=== PATIENT | male | born 1960 | race Caucasian/White ===

== ENCOUNTER 2017-07-05 16:51 | Emergency (ER) | payer MEDICARE ==
[~2017-07-05] VITALS: Ht 190.5 cm; Wt 158.8 kg
[2017-07-05 17:04] VITALS: BP 151/98
[2017-07-05] MEDS ORDERED: PERM60CR12 TP (17:14)
[2017-07-05] MEDS ORDERED: CEPH-263 PO (17:14)
--- NOTE | 2017-07-05 17:14 | PHYS DOC ---
Past Medical History Past Medical History: Other Additional Past Medical Histor: CHRONIC SHOULDER AND LEFT KNEE PAIN Past Surgical History: Knee Replacement, Other Additional Past Surgical Histo: BILATER SHOULDER SURGERY Alcohol Use: None Drug Use: None Adult General Chief Complaint Chief Complaint: ITCHING HPI HPI Patient is a 57 year old male presents the ED complaining of itching and rash to full body x 2 days. Patient states the rash started on his arms and started moving towards his trunk. States a few days ago he helped wash his neighbors dog who had a lot of fleas and bugs on him. Rates the itching as 8 out of 10. States he has scratched some of them open cause he itches really bad. Denies fever, discharge, headache, nausea/vomiting or abdominal pain. Review of Systems Review of Systems Constitutional: Denies fever or chills [] Eyes: Denies change in visual acuity, redness, or eye pain [] HENT: Denies nasal congestion or sore throat [] Respiratory: Denies cough or shortness of breath [] Cardiovascular: No additional information not addressed in HPI [] GI: Denies abdominal pain, nausea, vomiting, bloody stools or diarrhea [] : Denies dysuria or hematuria [] Musculoskeletal: Denies back pain or joint pain [] Integument: Complains of rash. Denies skin lesions. [] Neurologic: Denies headache, focal weakness or sensory changes [] Endocrine: Denies polyuria or polydipsia [] Allergies Allergies Allergies Coded Allergies Type Severity Reaction Last Updated Verified No Known Drug Allergies 07/04/14 No Physical Exam Physical Exam Constitutional: Well developed, well nourished, no acute distress, non-toxic appearance. [] HENT: Normocephalic, atraumatic, bilateral external ears normal, oropharynx moist, no oral exudates, nose normal. [] Eyes: PERRLA, EOMI, conjunctiva normal, no discharge. [] Neck: Normal range of motion, no tenderness, supple, no stridor. [] Cardiovascular:Heart rate regular rhythm, no murmur [] Lungs & Thorax: Bilateral breath sounds clear to auscultation [] Abdomen: Bowel sounds normal, soft, no tenderness, no masses, no pulsatile masses. [] Skin: Warm, dry, MILD TRACKING ERYTHEMATOUS BURROWING RASH WITH EXCORIATIONS TO BILATERAL ARMS AND TRUNK/BACK. [] Back: No tenderness, no CVA tenderness. [] Extremities: No tenderness, no cyanosis, no clubbing, ROM intact, no edema. [] Neurologic: Alert and oriented X 3, normal motor function, normal sensory function, no focal deficits noted. [] Psychologic: Affect normal, judgement normal, mood normal. [] Current Patient Data Vital Signs Vital Signs Date Time Temp Pulse Resp B/P (MAP) Pulse Ox O2 Delivery O2 Flow Rate FiO2 07/05/17 17:04 98.2 71 20 96 Room Air 98.2 EKG EKG [] Radiology/Procedures Radiology/Procedures [] Course & Med Decision Making Course & Med Decision Making Pertinent Labs and Imaging studies reviewed. (See chart for details) []Will treat with permethrin cream, [id number] Benadryl and Keflex for prophylaxis due to possible secondary infection from scratching. Discussed abstaining from scratching and outpatient symptomatic treatment measures that will help. Discussed follow-up with PCP early next week. Discussed reasons to return to the ED. Patient understands and agrees with plan. Dragon Disclaimer Dragon Disclaimer This electronic medical record was generated, in whole or in part, using a voice recognition dictation system. Departure Departure Impression: Primary Impression: Insect bite Disposition: 01 HOME, SELF-CARE Condition: STABLE Referrals: DEMAR CHOW MD (PCP) Patient Instructions: Insect Bite, Scabies Scripts Cephalexin (KEFLEX) 250 Mg Capsule 1 CAP PO TID, #30 CAP Prov: LEONEL ARVIZU 07/05/17 Permethrin (PERMETHRIN) 60 Gm Cream..g. 1 [place] TP ONCE, #60 GM 1 Refill apply from neck down tonight before bed. Wake up and shower off in the morning. Prov: LEONEL ARVIZU 07/05/17 LEONEL ARVIZU Jul 05, 2017 17:14
== END 2017-07-05 17:32 | disposition home or self-care (01) ==
LOC: ER 16:51
DX: S40.861A Insect bite (nonvenomous) of right upper arm, initial encounter (principal); S40.862A Insect bite (nonvenomous) of left upper arm, initial encounter; G89.29 Other chronic pain; Z98.890 Other specified postprocedural states; W57.XXXA Bitten or stung by nonvenomous insect and other nonvenomous arthropods, initial encounter; Y92.89 Other specified places as the place of occurrence of the external cause; Y93.89 Activity, other specified; Y99.8 Other external cause status
CPT/HCPCS: 99283

== ENCOUNTER 2018-01-18 20:41 | Emergency (ER) | payer MEDICARE ==
[2018-01-18] MEDS: silver sulfADIAZINE 1% CREAM 25GM TUBE. TP (21:58)
== END 2018-01-18 22:00 | disposition home or self-care (01) ==
LOC: ER 20:41
DX: T24.201A Burn of second degree of unspecified site of right lower limb, except ankle and foot, initial encounter (principal); G89.29 Other chronic pain; X16.XXXA Contact with hot heating appliances, radiators and pipes, initial encounter; Y93.89 Activity, other specified; Y99.8 Other external cause status; Y92.89 Other specified places as the place of occurrence of the external cause
CPT/HCPCS: 16020; 99284-25

== ENCOUNTER 2020-01-05 00:52 | Emergency (ER) | payer MEDICARE ==
[~2020-01-05] VITALS: Ht 190.5 cm; Wt 161.3 kg
[~2020-01-05 00:52] MED LIST: CEPH-263 PO; PERM60CR12 TP; SILV20CR14 TP; SULF1TAB24 PO
[2020-01-05 01:06] VITALS: BP 133/82
[2020-01-05] MEDS ORDERED: cefTRIAXone IV Push 1 GM VIAL. IVP ONE (01:30)
[2020-01-05] MEDS ORDERED: SULF1TAB24 PO (01:35)
--- NOTE | 2020-01-05 01:35 | PHYS DOC ---
Past Medical History Past Medical History: Other Additional Past Medical Histor: CHRONIC SHOULDER AND LEFT KNEE PAIN Past Surgical History: Knee Replacement, Other Additional Past Surgical Histo: BILATER SHOULDER SURGERY Smoking Status: Never Smoker Alcohol Use: None Drug Use: None General Adult EDM: Chief Complaint: HAND PROBLEM HPI: HPI: Patient is a 59 year old male who presents with report of injury to his right hand 2 days ago. Patient states that he punctured his hand between his second and third digits with sharp edge of the fencing. He states that his last tetanus shot was around a year ago. Patient states that today he noticed that there was increase in swelling and started to see some purulent drainage from the wound. He denies any other injuries. He denies any fever. He rates pain as moderate but is still able to fully flex and extend his fingers.[] Review of Systems: Review of Systems: Constitutional: Denies fever or chills. [] Respiratory: Denies cough or shortness of breath. [] Cardiovascular: Denies chest pain or edema. [] Musculoskeletal: Complains of right hand pain. [] Heart Score: Risk Factors: Risk Factors: DM, Current or recent (<one month) smoker, HTN, HLP, family history of CAD, obesity. Risk Scores: Score 0 - 3: 2.5% MACE over next 6 weeks - Discharge Home Score 4 - 6: 20.3% MACE over next 6 weeks - Admit for Clinical Observation Score 7 - 10: 72.7% MACE over next 6 weeks - Early Invasive Strategies Allergies: Allergies: Allergies Coded Allergies Type Severity Reaction Last Updated Verified No Known Drug Allergies 01/05/20 No Physical Exam: PE: Constitutional: Well developed, well nourished, no acute distress, non-toxic appearance. [] HENT: Normocephalic, atraumatic, bilateral external ears normal, oropharynx moist, no oral exudates, nose normal. [] Eyes: PERRLA, EOMI, conjunctiva normal, no discharge. [] Neck: Normal range of motion, no tenderness, supple, no stridor. [] Cardiovascular:Heart rate regular rhythm, no murmur [] Lungs & Thorax: Bilateral breath sounds clear to auscultation [] Abdomen: Bowel sounds normal, soft, no tenderness, no masses, no pulsatile masses. [] Skin: Warm, dry, no erythema, no rash. [] Back: No tenderness, no CVA tenderness. [] Extremities: No tenderness, no cyanosis, no clubbing, ROM intact, no edema. [] Neurologic: Alert and oriented X 3, normal motor function, normal sensory function, no focal deficits noted. [] Psychologic: Affect normal, judgement normal, mood normal. [] Current Patient Data: Vital Signs: Vital Signs Date Time Temp Pulse Resp B/P (MAP) Pulse Ox O2 Delivery O2 Flow Rate FiO2 01/05/20 01:06 98.3 92 20 133/82 (99) 95 Room Air 98.3 EKG: EKG: [] Radiology/Procedures: Radiology/Procedures: [] Course & Med Decision Making: Course & Med Decision Making Pertinent Labs and Imaging studies reviewed. (See chart for details) [] Dragon Disclaimer: Dragon Disclaimer: This electronic medical record was generated, in whole or in part, using a voice recognition dictation system. Departure Departure Impression: Primary Impression: Puncture wound of hand Qualified Codes: S61.431A - Puncture wound without foreign body of right hand, initial encounter Additional Impression: Abscess of hand Disposition: HOME, SELF-CARE Condition: STABLE Referrals: JOVANNY SALGADO MD (PCP) Patient Instructions: Abscess, Puncture Wound Scripts Sulfamethoxazole/Trimethoprim (BACTRIM DS TABLET) 1 Each Tablet 1 TAB PO BID for 10 Days, #20 TAB 0 Refills Prov: JAS LANGE Jr. DO 01/05/20 JAS LANGE Jr. DO Jan 05, 2020 01:35
[2020-01-05] MEDS ORDERED: ceFAZolin IM 1 GM VIAL IM ONE (02:00)
== END 2020-01-05 01:46 | disposition home or self-care (01) ==
LOC: ER 00:52
DX: S61.431A Puncture wound without foreign body of right hand, initial encounter (principal); Y28.8XXA Contact with other sharp object, undetermined intent, initial encounter; Y93.89 Activity, other specified; Y92.89 Other specified places as the place of occurrence of the external cause; Y99.8 Other external cause status
CPT/HCPCS: 96372; 99283; J0690

== ENCOUNTER 2021-08-13 16:26 | Emergency (ER) | payer MEDICARE ==
[~2021-08-13] VITALS: Ht 188 cm; Wt 159.0 kg
--- NOTE | 2021-08-13 16:46 | PHYS DOC ---
Past Medical History Past Medical History: Other Additional Past Medical Histor: CHRONIC SHOULDER AND LEFT KNEE PAIN Past Surgical History: Knee Replacement, Other Additional Past Surgical Histo: BILATER SHOULDER SURGERY Smoking Status: Never Smoker Alcohol Use: None Drug Use: None General Adult EDM: Chief Complaint: LACERATION/AVULSION HPI: HPI: Patient is a 61 year old male who presents with a fall with head strike. Was working on a snowblower when he tripped and struck his forehead on snowblower. Sustained a laceration over his left eyebrow. Denies LOC. No amnesia, confusion, headache, or nausea/vomiting. Denies neck pain, paresthesias, or upper extremity weakness. Did scrape his right knee but denies any other areas of discomfort. Is not on any blood thinning medications or antiplatelet medications. States his only 2 medications are methadone and Klonopin. Last tetanus was in the past few months. Review of Systems: Review of Systems: Constitutional: Denies fever or chills. [] Eyes: Denies change in visual acuity. [] HENT: Denies nasal congestion or sore throat. [] Respiratory: Denies cough or shortness of breath. [] Cardiovascular: Denies chest pain or edema. [] GI: Denies abdominal pain, nausea, vomiting, bloody stools or diarrhea. [] : Denies dysuria. [] Musculoskeletal: Denies back pain or joint pain. [] Integument: Reports a laceration to his left brow, abrasion to his right knee Neurologic: Denies headache, focal weakness or sensory changes. [] Endocrine: Denies polyuria or polydipsia. [] Lymphatic: Denies swollen glands. [] Psychiatric: Denies depression or anxiety. [] Heart Score: C/O Chest Pain: No Allergies: Allergies: Allergies Coded Allergies Type Severity Reaction Last Updated Verified No Known Drug Allergies 01/18/20 No Physical Exam: PE: Constitutional: Well developed, well nourished HENT: Left brow with a superficial laceration that is well approximated measuring approximately 1.5 cm. No evidence of foreign body. TMs normal. No evidence of gary sign. Eyes: PERRLA, EOMI, conjunctiva normal, no discharge. [] Neck: No midline cervical spine tenderness to palpation. No pain with 45 degree rotation in either direction, flexion to the left/right, or flexion/extension of the neck. Cardiovascular:Heart rate regular rhythm, no murmur [] Lungs & Thorax: Bilateral breath sounds clear to auscultation no chest wall tenderness to palpation. [] Abdomen: Bowel sounds normal, soft, no tenderness, no masses, no pulsatile masses. [] Skin: Warm, dry, no erythema, no rash. [] Back: No tenderness, no CVA tenderness. [] Extremities: No tenderness, no cyanosis, no clubbing, ROM intact, no edema. [] Neurologic: GCS 15 Alert, oriented. Speech normal. Face symmetric. EOMI, pupils equal, round, reactive, Good upper extremity and lower extremity strength. No sensation deficits or changes. Psychologic: Affect normal, judgement normal, mood normal. [] EKG: EKG: [] Radiology/Procedures: Radiology/Procedures: Indication: Left brow laceration Procedure: The patient was placed in the appropriate position and anesthesia around the left brow laceration was infiltrated with 1% lidocaine with epinephrine. The area was then irrigated with sterile saline. The laceration was closed with 40 simple interrupted Ethilon suture.. Total repaired wound length: 1.5 cm. Other Items: None The patient tolerated the procedure well. Complications: None. Course & Med Decision Making: Course & Med Decision Making Pertinent Labs and Imaging studies reviewed. (See chart for details) Patient 61-year-old male who sustained a left brow laceration after he tripped and fell. Knox head and C-spine rules negative. Do not feel that he requires neuroimaging. Tetanus up-to-date. Wound closed as above with simple interrupted suture. Given wound care instructions. Return precautions were given for headache, nausea/vomiting, confusion. Dragon Disclaimer: [place] Disclaimer: This electronic medical record was generated, in whole or in part, using a voice recognition dictation system. Departure Departure Impression: Primary Impression: Face lacerations Disposition: HOME / SELF CARE / HOMELESS Condition: STABLE Referrals: JOVANNY SALGADO MD (PCP) Schedule an appointment in 7-10 days for suture removal Additional Instructions: We repaired your laceration with sutures. These will need to come out in 7 to 10 days. Please schedule appointment with your primary care doctor, or visit in ED or urgent care to have these removed. Keep the area clean and dry. Keep it dressed. Use an ointment such as Neosporin or bacitracin on it. If you have increasing swelling, pain, redness, or warmth these are all signs of potential infection. If these occur please see your doctor. NADIA PIÑA MD Aug 13, 2021 16:46
[2021-08-13] MEDS: LIDOCAINE 1%/EPI 1:100,000 20 ML VIAL. INJ ONE (16:55)
[2021-08-13 17:13] VITALS: BP 163/90
== END 2021-08-13 17:12 | disposition home or self-care (01) ==
LOC: ER 16:26
DX: S01.112A Laceration without foreign body of left eyelid and periocular area, initial encounter (principal); W01.198A Fall on same level from slipping, tripping and stumbling with subsequent striking against other object, initial encounter; Y93.89 Activity, other specified; Y92.69 Other specified industrial and construction area as the place of occurrence of the external cause; Y99.0 Civilian activity done for income or pay
CPT/HCPCS: 12011; 99282; J3490